=== PATIENT | female | born 1955 | race Caucasian/White ===

== ENCOUNTER → 2020-07-09 | Outpatient (CLI) | payer OTHER ==
[2016-12-14 14:50] VITALS: BP 141/72
[~2020-07-09] MED LIST: BENZ-8 PO; LEVO500T59 PO
--- NOTE | 2020-07-09 10:40 | KCIC ---
CT LOW DOSE LUNG SCREENING INDICATION: COPD, SMOKER COMPARISON STUDY: Diagnostic CT chest 12/11/2016. TECHNIQUE: Unenhanced axial images were obtained through the lungs and upper abdomen using low dose technique. Coronal and sagittal multiplanar reformatted images were also obtained. PQRS compliance statement: One or more of the following individualized dose reduction techniques were utilized for this examination: 1. Automated exposure control 2. Adjustment of the mA and/or kV according to patient size 3. Use of iterative reconstruction technique FINDINGS: Lung Nodules: No suspicious pulmonary nodules. Calcified pulmonary granulomas. Lungs and Airways: No pulmonary mass or consolidation. Right greater than left apical subpleural fibrosis Paraseptal and centrilobular emphysema. Normal central airways. Pleura: Normal pleural spaces. Heart and Mediastinum: The visualized portions of the thyroid gland are normal in size and attenuation. No axillary or supraclavicular lymphadenopathy. No mediastinal, hilar or retrocrural lymphadenopathy. Calcified right hilar lymph node consistent with remote granulomatous disease. Normal cardiac size. No pericardial effusion. Coronary artery atherosclerotic disease. Atherosclerosis of the thoracic aorta and branch vessels. Abdomen: The visualized abdominal organs demonstrate no abnormality. Bones and Soft Tissues: Degenerative changes spine. IMPRESSION: 1. No pulmonary mass or suspicious pulmonary nodules. Lung-RADS Category: 1 Management Recommendation: Follow up low-dose chest CT in one year. 2. Paraseptal and centrilobular emphysema. 3. Coronary artery atherosclerotic disease. Electronically signed by: Azar Graves MD (07/09/2020 10:36 AM) [id number]
== END | disposition home or self-care (01) ==
LOC: KCIC CT 09:03
PROVIDERS: ATTEND Family Medicine
DX: Z12.2 Encounter for screening for malignant neoplasm of respiratory organs (principal); J84.10 Pulmonary fibrosis, unspecified; J43.2 Centrilobular emphysema; I70.0 Atherosclerosis of aorta; I25.10 Atherosclerotic heart disease of native coronary artery without angina pectoris; Z87.891 Personal history of nicotine dependence
CPT/HCPCS: G0297

== ENCOUNTER → 2021-03-14 | Outpatient (CLI) | payer MEDICARE, OTHER ==
[2016-12-14 14:50] VITALS: BP 141/72
--- NOTE | 2021-03-14 10:11 | KCIC ---
EXAM: DUAL ENERGY X-RAY ABSORPTIOMETRY (DEXA). HISTORY: Postmenopausal screening. FINDINGS: The lowest measured T-score is -1.0 in the left hip, based on a bone mineral density of 0.8 -3 g/cm^2. Refer to the worksheets for full detail. No comparison examinations are available. IMPRESSION: 1. Borderline low bone mass. Bone mineral density yields a T-score between -1.0 and -2.5. Fracture ri sk is increased. 2. FRAX report: Not calculated. METHODOLOGY: Dual energy x-ray absorptiometry was performed to measure bone mineral density. The foll owing analysis is based on the 2019 Official Positions of the International Society for Clinical Dens itometry: Measurements of the hips and the average of L1-L4 are preferred. When the spine and/or hip cannot be feasibly measured or interpreted, or in the setting of hyperparathyroidism, distal radial bone minera l density may be measured. The lumbar spine T-score is based on the average bone mineral density of L1-L4. In the setting of art ifact or anatomic abnormality, some lumbar levels may be excluded, and the remaining levels used for calculation. A single lumbar level is not used for diagnosis, and if only a single level is available for assessment, another anatomic site will be used to assign a diagnosis. The hip T-score is based on the bone mineral density measurement of the femoral neck or total proxima l femur of either side, whichever is lowest. Bilateral mean values are not used for diagnosis. The forearm T-score is derived from 33% of the distal radius of the nondominant forearm. Electronically signed by: Juliann Leonard MD (03/14/2021 10:09 AM) [id number]
== END ==
LOC: KCIC DEXA 09:03
PROVIDERS: ATTEND Physician Assistant Medical
DX: Z12.31 Encounter for screening mammogram for malignant neoplasm of breast (principal); Z78.0 Asymptomatic menopausal state
CPT/HCPCS: 77067; 77080